=== PATIENT | male | born 1970 | race Caucasian/White ===

== ENCOUNTER → 2025-01-01 07:56 | Outpatient (REF) | payer OTHER, SELFPAY | LOC: HWRAD 07:56 | PROVIDERS: ATTENDING PHYSICIAN Urology; FAMILY PHYSICIAN Internal Medicine | DX: N20.0 Calculus of kidney (principal); R30.0 Dysuria | CPT/HCPCS: 74176 ==

== ENCOUNTER 2025-01-31 06:20 | Day surgery (SDC) | payer OTHER, SELFPAY ==
[2025-01-21 08:46] LABS: Hematocrit 45.7 % (39.0-52.0); Hemoglobin 16.4 g/dL (13.0-18.0); Mean Corp Hgb Conc. 35.9 g/dL (33.0-37.0); Mean Corpuscular Hgb 31.1 pg (27.0-31.0); Mean Corpuscular Volume 86.7 fL (80.0-94.0); Mean Platelet Volume 11.1 fL (7.4-10.4); Platelet Count 197 10^3/uL (130-400); Red Blood Cell Count 5.27 10^6/uL (4.70-6.10); Red Cell Dist. Width 11.8 % (11.5-14.5); White Blood Cell Count 7.9 10^3/uL (4.8-10.8)
[2025-01-21 09:36] LABS: Blood Urea Nitrogen 14 mg/dl (9-20); Calcium 9.5 mg/dl (8.4-10.2); Carbon Dioxide 29 mmol/L (22-30); Chloride 106 mmol/L (98-107); Glucose 221 mg/dl (70-99); Potassium 4.2 mmol/L (3.5-5.1); Sodium 141 mmol/L (135-145); eGFR > 60.00
[2025-01-21 13:46] VITALS: BMI 22.0
--- NOTE | 2025-01-22 12:01 | PTCARENOTE ---
Abn ECG, Dr. Hayden notified, no new interventions requested.
--- NOTE | 2025-01-24 09:05 | PTCARENOTE ---
Abn Glucose (221), patient without history of diabetes, Priaynka at Dr. Alexander's office made aware.
--- NOTE | 2025-01-24 14:21 | PTCARENOTE ---
Patients 01/21 Glucose 221- Reviewed by Dr. Moody- No additional interventions required
[2025-01-31] VITALS (10 sets, daily range): BP systolic 122–154; BP diastolic 79–102; BMI 22.0
[2025-01-31] MEDS: NORMOSOL-R/PLASMALYTE-A 1000 IV (11:49)
[2025-01-31] MEDS: Pyridium 200 MG PO (14:24)
[2025-02-06 08:08] LABS: Stone Analysis Mass 24 mg
== END 2025-01-31 15:20 | disposition home or self-care (01) ==
LOC: SDS 06:20
PROVIDERS: ATTENDING PHYSICIAN Urology; FAMILY PHYSICIAN Internal Medicine
DX: N20.2 Calculus of kidney with calculus of ureter (principal); N21.0 Calculus in bladder
CPT/HCPCS: 52317; 52352; 74018; 76000; 80048; 82365; 85027; 93005